=== PATIENT | male | born 2000 | race Caucasian/White ===

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

== ENCOUNTER 2020-02-07 21:39 | Emergency (ER) | payer OTHER ==
[~2020-02-07] VITALS: Ht 185.4 cm; Wt 102.0 kg
--- NOTE | 2020-02-07 21:50 | NUR ---
ERP HAS BEEN TO BEDSIDE, EKG ON ARRIVAL. PT RECEIVED 700ML NS EN ROUTE. BEDSIDE REPORT GIVEN TO BEATA. PT PLACED ON CARDIAC, BP AND O2 MONITORS. BEDRAILS UP X2, CALL LIGHT IN REACH, MOTHER AT BEDSIDE.
--- NOTE | 2020-02-07 21:55 | NUR ---
assumed care of pt. report from Roshni JEFFERY. pt here after near syncopal episode at work tonight where pt fell to the floor. denies LOC. pt reports that he hit the front of his head. no open wounds noted. pt A&O x4. no resp. distress. states that he is having epigastric pain. no other c/o. pt mother at bedside. pt apporpriate with mother at bedside.
[2020-02-07] MEDS ORDERED: ASPIRIN 81 MG TABLET CHEW PO ONE (22:00)
[2020-02-07] MEDS ORDERED: SODIUM CHLORIDE FLUSH 10ML SYR IVF ONE (22:00)
--- NOTE | 2020-02-07 22:00 | NUR ---
CXR at bedside
[2020-02-07 22:33] LABS: BASOPHILS # (AUTO) 0.03 x10^3/uL (0-0.3); BASOPHILS % (AUTO) 1 % (0-1); EOSINOPHILS # (AUTO) 0.06 x10^3/uL (0-0.8); EOSINOPHILS % (AUTO) 1 % (1-7); LYMPHOCYTES # (AUTO) 1.98 x10^3/uL (1-6.1); LYMPHOCYTES % (AUTO) 35 % (22-44); MD NO; MEAN CORPUSCULAR HEMOGLOBIN 28.6 pg (27.5-34.5); MEAN CORPUSCULAR HGB CONC 33.4 g/dL (33.2-36.2); MEAN CORPUSCULAR VOLUME 85.6 fL (81-97); MEAN PLATELET VOLUME 8.5 fL (7.4-10.4); MONOCYTES # (AUTO) 0.45 x10^3/uL (0-1.4); MONOCYTES % (AUTO) 8 % (2-9); NEUTROPHILS # (AUTO) 3.11 x10^3/uL (1.8-8.0); NEUTROPHILS % (AUTO) 55 % (42-75); PLATELET COUNT 248 x10^3/uL (130-400); RED BLOOD COUNT 5.11 x10^6/uL (4.38-5.82); RED CELL DISTRIBUTION WIDTH 13.1 % (9.4-14.8)
[2020-02-07 22:46] LABS: ALANINE AMINOTRANSFERASE 77 U/L (12-78); ALBUMIN 3.7 g/dL (3.4-5.0); CALCIUM 8.1 mg/dL (8.5-10.1); CHLORIDE 109 mmol/L (98-107); CREATININE 1.06 mg/dL (0.7-1.3)
[2020-02-07 22:48] LABS: BILIRUBIN, DIRECT < 0.1 mg/dL (0.1-0.2)
[2020-02-07 22:51] LABS: ALKALINE PHOSPHATASE 96 U/L (45-117); BILIRUBIN,INDIRECT 0.3 mg/dL (0.0-2.0); BILIRUBIN,TOTAL 0.4 mg/dL (0.2-1.0); TOTAL PROTEIN 7.1 g/dL (6.4-8.2); TROPONIN I < 0.015 ng/mL (0.000-0.045)
[2020-02-07] MEDS ORDERED: ASPIRIN 81 MG TABLET CHEW ONE (22:51)
--- NOTE | 2020-02-07 23:04 | NUR ---
pt sitting up on gurney. no apparent distress. mother at bedside.
--- NOTE | 2020-02-07 23:26 | NUR ---
no changes. pt sitting up in no apparent distress. chart up for MD recheck
--- NOTE | 2020-02-08 00:25 | NUR ---
Dr. Loja at bedside for recheck
[2020-02-08 00:30] VITALS: BP 138/92
--- NOTE | 2020-02-08 00:58 | NUR ---
this pt was D/C by another RN
[2020-02-08 03:46] LABS: ANION GAP 10 mmol/L (5-15)
== END 2020-02-08 01:17 | disposition home or self-care (01) ==
LOC: ED 22:10
DX: R07.1 Chest pain on breathing (principal); R55 Syncope and collapse; R42 Dizziness and giddiness
CPT/HCPCS: 36415; 71045; 80048; 80076; 82040; 83690; 84484; 85025; 93005; 99285

== ENCOUNTER → 2020-03-21 | Outpatient (CLI) | payer OTHER | END | disposition home or self-care (01) | LOC: CFH 15:43 | PROVIDERS: ATTEND Internal Medicine Cardiovascular Disease | DX: R94.31 Abnormal electrocardiogram [ECG] [EKG] (principal); R55 Syncope and collapse; Z87.891 Personal history of nicotine dependence | CPT/HCPCS: 93306 ==

== ENCOUNTER 2020-03-24 20:27 | Emergency (ER) | payer OTHER ==
[~2020-03-24] VITALS: Ht 193 cm; Wt 99.7 kg
[2020-03-24 23:31] LABS: BASOPHILS # (AUTO) 0.04 x10^3/uL (0-0.3); BASOPHILS % (AUTO) 0 % (0-1); EOSINOPHILS # (AUTO) 0.02 x10^3/uL (0-0.8); EOSINOPHILS % (AUTO) 0 % (1-7); LYMPHOCYTES # (AUTO) 1.81 x10^3/uL (1-6.1); LYMPHOCYTES % (AUTO) 16 % (22-44); MD NO; MEAN CORPUSCULAR HEMOGLOBIN 27.5 pg (27.5-34.5); MEAN CORPUSCULAR HGB CONC 31.7 g/dL (33.2-36.2); MEAN CORPUSCULAR VOLUME 86.8 fL (81-97); MEAN PLATELET VOLUME 8.3 fL (7.4-10.4); MONOCYTES # (AUTO) 1.16 x10^3/uL (0-1.4); MONOCYTES % (AUTO) 11 % (2-9); NEUTROPHILS # (AUTO) 8.07 x10^3/uL (1.8-8.0); NEUTROPHILS % (AUTO) 73 % (42-75); PLATELET COUNT 272 x10^3/uL (130-400); RED BLOOD COUNT 5.52 x10^6/uL (4.38-5.82); RED CELL DISTRIBUTION WIDTH 13.3 % (9.4-14.8)
[2020-03-24 23:44] LABS: ANION GAP 6 mmol/L (5-15); CALCIUM 9.2 mg/dL (8.5-10.1); CHLORIDE 107 mmol/L (98-107); CREATININE 1.05 mg/dL (0.7-1.3)
--- NOTE | 2020-03-25 00:38 | NUR ---
PT AMBULATED BACK TO ROOM WITH THIS RN. PT IS GROANING IN DISCOFMORT. STATES CP THAT STARTED YESTERDAY AROUND 3. 10/10 PAIN, PULSES 2+, GROSS NEURO INTACT, PT RESTING ON GURNEY. UP FOR RECHECK. WCTM. PT PLACED ON SPO2/BP/ECG MONITORING.
[2020-03-25 01:27] LABS: TROPONIN I < 0.015 ng/mL (0.000-0.045)
[2020-03-25] MEDS ORDERED: SODIUM CHLORIDE FLUSH 10ML SYR IVF ONE (01:30)
[2020-03-25] MEDS ORDERED: KETOROLAC 30 MG/1 ML IVPush ONE (01:30)
[2020-03-25] MEDS ORDERED: KETOROLAC 30 MG/1 ML ONE (01:31)
--- NOTE | 2020-03-25 01:45 | NUR ---
PT MEDICATED PER MAR, NAD, RESTING ON GURNEY, APPEARS UNCOMFORTABLE. WCTM. WAITING FOR ADDITIONAL LABS.
[2020-03-25 02:01] VITALS: BP 135/58
--- NOTE | 2020-03-25 02:27 | NUR ---
Patient given discharge instructions and they have confirmed that they understand the instructions. Patient ambulatory with steady gait. NAD, no belongings left in room after discharge. Pt denies additional needs or questions at this time.
== END 2020-03-25 02:28 | disposition home or self-care (01) ==
LOC: ED 03-25 01:10
DX: R07.89 Other chest pain (principal); R55 Syncope and collapse; R94.31 Abnormal electrocardiogram [ECG] [EKG]; Z87.891 Personal history of nicotine dependence
CPT/HCPCS: 36415; 71046; 80048; 82040; 84484; 85025; 85379; 93005; 96374; 99285; J1885

== ENCOUNTER 2021-03-08 20:45 | Emergency (ER) | payer OTHER ==
[~2021-03-08] VITALS: Ht 188 cm; Wt 100.6 kg
[2021-03-08 20:50] VITALS: BP 139/80
[2021-03-08] MEDS ORDERED: FLUCONAZOLE 100 MG TABLET PO ONE (21:30)
[2021-03-08] MEDS ORDERED: FLUCONAZOLE 100 MG TABLET ONE (21:50)
--- NOTE | 2021-03-08 21:52 | NUR ---
PT MEDICATED PER MAR
--- NOTE | 2021-03-08 21:56 | NUR ---
Patient/Caregiver given discharge instructions and they have confirmed that they understand the instructions. Patient ambulatory with steady gait.
== END 2021-03-08 22:01 | disposition home or self-care (01) ==
LOC: ED 21:57
DX: B37.49 Other urogenital candidiasis (principal)
CPT/HCPCS: 99283

== ENCOUNTER 2021-03-20 12:08 | Emergency (ER) | payer OTHER ==
[~2021-03-20] VITALS: Ht 190.5 cm; Wt 99.3 kg
[2021-03-20] MEDS ORDERED: SODIUM CHLORIDE FLUSH 10ML SYR IVF ONE (13:00)
[2021-03-20] MEDS ORDERED: SODIUM CHLORIDE 0.9% 1,000ML IVBOLUS ONE (13:00)
[2021-03-20 13:34] LABS: MEAN CORPUSCULAR HEMOGLOBIN 28.5 pg (27.5-34.5); MEAN CORPUSCULAR HGB CONC 33.7 g/dL (33.2-36.2); PLATELET COUNT 196 x10^3/uL (130-400); RED BLOOD COUNT 5.77 x10^6/uL (4.38-5.82); RED CELL DISTRIBUTION WIDTH 12.8 % (9.4-14.8)
[2021-03-20 13:42] LABS: ANION GAP 9 mmol/L (5-15); CALCIUM 9.2 mg/dL (8.5-10.1); CHLORIDE 102 mmol/L (98-107)
[2021-03-20 13:46] LABS: ALANINE AMINOTRANSFERASE 119 U/L (12-78); ALKALINE PHOSPHATASE 95 U/L (45-117); BILIRUBIN,TOTAL 0.5 mg/dL (0.2-1.0); CREATININE 1.05 mg/dL (0.7-1.3); TOTAL PROTEIN 8.1 g/dL (6.4-8.2)
[2021-03-20 14:02] LABS: BASOPHILS % (AUTO) 1 % (0-1); EOSINOPHILS % (AUTO) 0 % (1-7); LYMPHOCYTES % (AUTO) 33 % (22-44); MONOCYTES % (AUTO) 14 % (2-9); NEUTROPHILS % (AUTO) 53 % (42-75)
--- NOTE | 2021-03-20 14:05 | NUR ---
FREELANCE TRANSLATOR; PT TO ROOM FROM FRANC[facility] RODRIGUEZ
--- NOTE | 2021-03-20 14:08 | NUR ---
PT back from lobby with chief complaint of abd pain intermittent since friday with n/v/d.
--- NOTE | 2021-03-20 14:49 | NUR ---
report received from Temitope Garcia, assuming care of pt at this time
--- NOTE | 2021-03-20 15:24 | NUR ---
PIV placed. ua collected and walked to lab
--- NOTE | 2021-03-20 15:29 | NUR ---
CT DELAY; WHEN IV IN PLACE- DR CANDELARIA WANTED ANOTHER ER DONE FIRST; ONE ROOM DOWN WITH COVID EXPOSURE
[2021-03-20 15:44] LABS: MICROSCOPIC INDICATED
[2021-03-20 16:37] VITALS: BP 136/85
--- NOTE | 2021-03-20 16:37 | NUR ---
pt to CT at this time
[2021-03-20] MEDS ORDERED: OMNIPAQUE 350 MG/ML, 100ML BOTTLE ONE (16:56)
--- NOTE | 2021-03-20 16:59 | NUR ---
pt back from CT, vss, kelin. awaiting results and dispo
--- NOTE | 2021-03-20 17:51 | NUR ---
pt educated on dc instructions, verbalized understanding. ambulatory to dc desk with steady gait.
== END 2021-03-20 17:53 | disposition home or self-care (01) ==
LOC: ED 14:58
DX: A08.4 Viral intestinal infection, unspecified (principal)
CPT/HCPCS: 36415; 74177; 80053; 81001; 85025; 99285; Q9967